=== PATIENT | female | born 1960 | race Caucasian/White ===

== ENCOUNTER 2020-10-16 13:57 | Emergency (ER) | payer BC, OTHER ==
[2020-10-16 14:34] VITALS: BP 137/87; PULSE 116; TEMP 97.9; BMI 28.8
[2020-10-16] MEDS ORDERED: ACETAMINOPHEN 500 MG TABLET (FP) PO ONE (15:05)
[2020-10-16] MEDS ORDERED: ACETAMINOPHEN 650 MG/20.3 ML ORAL SOLUTION (CUPS) ONE (15:12)
== END 2020-10-16 16:09 | disposition home or self-care (01) ==
LOC: JER 13:57
DX: R68.83 Chills (without fever) (principal)
CPT/HCPCS: 87426; 87804; 99284-25; C9803; U0003

== ENCOUNTER 2020-10-17 10:22 | Emergency (ER) | payer BC, OTHER ==
[2020-10-17 11:23] VITALS: BP 137/82; PULSE 102; TEMP 98.2; BMI 28.8
== END 2020-10-17 13:23 | disposition home or self-care (01) ==
LOC: JER 10:22
DX: J06.9 Acute upper respiratory infection, unspecified (principal); R05 Cough; R09.81 Nasal congestion; U07.1 COVID-19
CPT/HCPCS: 71046-TC-FY; 99284-25